=== PATIENT | female | born 1960 | race American Indian/Alaskan Native ===

== ENCOUNTER 2017-01-12 19:47 | Emergency (ER) | payer OTHER ==
[2017-01-12 19:53] VITALS: BP 118/74
--- NOTE | 2017-01-12 20:35 | EDM.PDOC ---
ED HPI EYE COMPLAINT - General Chief Complaint: Eye Problems Stated Complaint: INFECTED EYS [id number] Time Seen by Provider: 01/12/17 20:30 Source: Reports: Patient History Limitations: Reports: No limitations - History of Present Illness INITIAL COMMENTS - FREE TEXT/NARRATIVE: This 56 yo female patient reports to the ED with bilateral eye erythema and itching. The patient reports her symptoms started 2 days ago and have gotten worse. The patient reports she has not done anything for temporary symptom relief. Symptom Onset Date: 01/11/17 Timing/Duration: Reports: Constant, Getting worse Location: both Quality: Reports: Ache, Burning Severity: moderate Improves with: Reports: None Worsens with: Reports: None Context: Reports: other (unknown) Associated Symptoms (Eye): Reports: pain, burning, itching, eyelid matting, orbital redness - Related Data Allergies/ADRs: Allergies pregabalin Allergy (Verified 01/12/17 19:55) Dizziness Home Meds: Ambulatory Orders Medication Instructions Recorded Confirmed Omeprazole 20 mg PO DAILY 01/18/15 07/18/16 Ibuprofen 400 mg PO TID PRN 07/17/16 07/17/16 Gabapentin [Neurontin] 600 mg PO TID 07/18/16 07/18/16 Aspirin 81 mg PO DAILY 01/12/17 01/12/17 Past Medical History HEENT History: Reports: Impaired vision Cardiovascular History: Reports: Hypertension 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: Reports: GERD 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: Neurological History: Reports: Neuropathy, peripheral Psychiatric History: Reports: Depression Endocrine/Metabolic History: Reports: Diabetes, type II - Infectious Disease History Infectious Disease History: Reports: Chicken pox - Past Surgical History Other Cardiovascular Surgeries/Procedures: "nerve damage around heart" Other GI Surgeries/Procedures: on omeprozole for heartburn Social & Family History - Tobacco Use Smoking Status *Q: Light Tobacco Smoker Years of Tobacco use: 25 Packs/Tins Daily: 0.2 - Caffeine Use Caffeine Use: Reports: Coffee - Alcohol Use Days Per Week of Alcohol Use: 0 - Recreational Drug Use Recreational Drug Use: No Drug Use in Last 12 Months: Yes Recreational Drug Type: Reports: Marijuana/Hashish Recreational Drug Use Frequency: Socially - Living Situation & Occupation Living situation: Reports: Occupation: employed ED ROS GENERAL - Review of Systems Review Of Systems: ROS reveals no pertinent complaints other than HPI. ED EXAM GENERAL W FULL EYE - Physical Exam Exam: See Below Exam Limited By: No limitations General Appearance: alert, WD/WN, mild distress Eye Exam: bilateral eye: conjunctival injection, PERRL Eyelids: bilateral: erythema (mild) Conjunctiva & Sclera: bilateral: injected Cornea Exam: bilateral: normal appearance Extraocular Movements: bilateral: intact Pupils: normal accommodation Pupillary Size: bilateral: 4 mm Pupillary Reaction: bilateral: brisk Ears: normal external exam, normal canal, hearing grossly normal, normal TMs Nose: normal inspection, normal mucosa, no blood Throat/Mouth: Normal inspection, Normal lips, Normal teeth, Normal gums, Normal oropharynx, Normal voice, No airway compromise Head: atraumatic, normocephalic Neck: normal inspection, supple, non-tender, full range of motion Respiratory/Chest: no respiratory distress, lungs clear, normal breath sounds, no accessory muscle use, chest non-tender Cardiovascular: normal peripheral pulses, regular rate, rhythm, no edema, no gallop, no JVD, no murmur, no rub GI/Abdominal: normal bowel sounds, soft, non tender, no organomegaly, no distention, no abnormal bruit, no mass, other (obese) (Female) Exam: Deferred Rectal (Female) Exam: Deferred Extremities: normal inspection, normal range of motion, non-tender, normal capillary refill, no pedal edema Neurological: alert, oriented, CN II-XII intact, normal cognition, normal gait, normal reflexes, no motor/sensory deficits Psychiatric: normal affect, normal mood Skin Exam: Warm, Dry, Intact, Normal color, No rash Lymphatic: no adenopathy Course - Vital Signs Last Recorded V/S: Last Vital Signs Temp 37.0 C 01/12/17 19:51 Pulse 86 01/12/17 19:51 Resp 16 01/12/17 19:51 BP 118/74 01/12/17 19:51 Pulse Ox 94 L 01/12/17 19:51 Departure - Departure Time of Disposition: 20:33 Disposition: Home, Self-Care 01 Condition: fair Clinical Impression: Conjunctivitis Qualifiers: Conjunctivitis type: acute Acute conjunctivitis type: bacterial Laterality: bilateral Qualified Code(s): H10.33 - Unspecified acute conjunctivitis, bilateral Instructions: Bacterial Conjunctivitis, [id number] Forms: ED Department Discharge Care Plan Goals: The patient was advised of the examination results during the visit. The patient was discharged with Sulfacetamide Ophthalmic (10% solution) to place 2 dropps in each eye 4 times per day for 7 days. If the patient has any additional symptoms, the patient should follow-up with her primary care facility or return to the emergency department.
[2017-01-12] MEDS ORDERED: Sulfacetamide 10% Ophth Soln 5 ML Bottle EYEBOTH ONE (20:47)
[2017-01-12] MEDS ORDERED: Sulfacetamide 10% Ophth Soln 5 ML Bottle ONE (20:47)
== END 2017-01-12 20:49 | disposition home or self-care (01) ==
LOC: DL.ED 19:47
DX: H10.33 Unspecified acute conjunctivitis, bilateral (principal); I10 Essential (primary) hypertension; K21.9 Gastro-esophageal reflux disease without esophagitis; F32.9 Major depressive disorder, single episode, unspecified; E11.9 Type 2 diabetes mellitus without complications; F17.210 Nicotine dependence, cigarettes, uncomplicated; Z79.899 Other long term (current) drug therapy; Z79.82 Long term (current) use of aspirin; Z88.8 Allergy status to other drugs, medicaments and biological substances
CPT/HCPCS: 99282

== ENCOUNTER 2017-01-13 20:22 | Emergency (ER) | payer OTHER ==
[2017-01-13 20:27] VITALS: BP 130/68
[2017-01-13] MEDS ORDERED: Bacitracin/Polymyxin B Ophth Oint 3.5 GM Tube EYEBOTH SCH (21:00)
--- NOTE | 2017-01-13 21:00 | EDM.PDOC ---
ED HPI EYE COMPLAINT - General Chief Complaint: Eye Problems Stated Complaint: eys infection [id number] Time Seen by Provider: 01/13/17 20:53 Source: Reports: Patient History Limitations: Reports: No limitations - History of Present Illness INITIAL COMMENTS - FREE TEXT/NARRATIVE: this 56 yo female patient returns to the ED with increased swelling in her eyes. The patient was seen in the ED yesterday for conjunctivitis and started on sulfacetamide eye drops with worsening of her symptoms. Symptom Onset Date: 01/11/17 Timing/Duration: Reports: Constant, Getting worse Location: both Quality: Reports: Ache, Burning, Dull Severity: moderate Improves with: Reports: Other (cool compress) Worsens with: Reports: None Associated Symptoms (Eye): Reports: pain, burning, itching, eyelid redness, eyelid swelling - Related Data Allergies/ADRs: Allergies pregabalin Allergy (Verified 01/13/17 20:27) Dizziness Home Meds: Ambulatory Orders Medication Instructions Recorded Confirmed Omeprazole 20 mg PO DAILY 01/18/15 01/13/17 Ibuprofen 400 mg PO TID PRN 07/17/16 01/13/17 Gabapentin [Neurontin] 600 mg PO TID 07/18/16 01/13/17 Aspirin 81 mg PO DAILY 01/12/17 01/13/17 Sulfacetamide [Bleph-10] 2 drop OP Q6H 01/13/17 01/13/17 Past Medical History HEENT History: Reports: Impaired vision Cardiovascular History: Reports: Hypertension 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: Reports: 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: Neurological History: Reports: Neuropathy, peripheral Psychiatric History: Reports: Depression Endocrine/Metabolic History: Reports: Diabetes, type II - Infectious Disease History Infectious Disease History: Reports: Chicken pox - Past Surgical History Other Cardiovascular Surgeries/Procedures: "nerve damage around heart" Other GI Surgeries/Procedures: on omeprozole for heartburn Social & Family History - Tobacco Use Smoking Status *Q: Current Every Day Smoker Years of Tobacco use: 30 Packs/Tins Daily: 0.2 Second Hand Smoke Exposure: Yes - Caffeine Use Caffeine Use: Reports: Coffee - Alcohol Use Days Per Week of Alcohol Use: 0 - Recreational Drug Use Recreational Drug Use: No Drug Use in Last 12 Months: Yes Recreational Drug Type: Reports: Marijuana/Hashish Recreational Drug Use Frequency: Socially - Living Situation & Occupation Living situation: Reports: Occupation: employed ED ROS GENERAL - Review of Systems Review Of Systems: ROS reveals no pertinent complaints other than HPI. ED EXAM GENERAL W FULL EYE - Physical Exam Exam: See Below Exam Limited By: No limitations General Appearance: alert, WD/WN, no apparent distress Eye Exam: bilateral eye: EOMI, normal inspection, PERRL Eyelids: bilateral: edema Conjunctiva & Sclera: bilateral: conjunctival edema, discharge Cornea Exam: bilateral: normal appearance Extraocular Movements: bilateral: intact Pupils: normal accommodation Pupillary Size: bilateral: 5 mm Pupillary Reaction: bilateral: brisk Ears: normal external exam, normal canal, hearing grossly normal, normal TMs Nose: normal inspection, normal mucosa, no blood Throat/Mouth: Normal inspection, Normal lips, Normal teeth, Normal gums, Normal oropharynx, Normal voice, No airway compromise Head: atraumatic, normocephalic Neck: normal inspection, supple, non-tender, full range of motion Respiratory/Chest: no respiratory distress, lungs clear, normal breath sounds, no accessory muscle use, chest non-tender Cardiovascular: normal peripheral pulses, regular rate, rhythm, no edema, no gallop, no JVD, no murmur, no rub GI/Abdominal: normal bowel sounds, soft, non tender, no organomegaly, no distention, no abnormal bruit, no mass (Female) Exam: Deferred Rectal (Female) Exam: Deferred Back Exam: normal inspection, full range of motion, NT Extremities: normal inspection, normal range of motion, non-tender, normal capillary refill, no pedal edema Neurological: alert, oriented, CN II-XII intact, normal cognition, normal gait, normal reflexes, no motor/sensory deficits Psychiatric: normal affect, normal mood Skin Exam: Warm, Dry, Intact, Normal color, No rash Lymphatic: no adenopathy Course - Vital Signs Last Recorded V/S: Last Vital Signs Temp 36.2 C 01/13/17 20:24 Pulse 85 01/13/17 20:24 Resp 18 01/13/17 20:24 BP 130/68 01/13/17 20:24 Pulse Ox 99 01/13/17 20:24 - Orders/Labs/Meds Orders: Active Orders 24 hr Category Date Time Status Bacitracin/Polymyxin B [Polysporin Ophth Oint] Med 01/13/17 21:00 Ordered 1 gm EYEBOTH TID Departure - Departure Time of Disposition: 20:56 Disposition: Home, Self-Care 01 Condition: fair Clinical Impression: Conjunctivitis Qualifiers: Conjunctivitis type: acute Acute conjunctivitis type: bacterial Laterality: bilateral Qualified Code(s): H10.33 - Unspecified acute conjunctivitis, bilateral Forms: ED Department Discharge Care Plan Goals: The patient was advised of the examination results during the visit. The patient was advised to stop the Sulfacetamide eye drops. The patient was given Polytrim ointment to apply a 1/4 inch ribbon to the lower eyelid 3 times per day for 7 days. The patient was also advised to start taking a second generation antihistamine (Zyrtec, Claritin) as directed. If the patient has any additional symptoms or concerns, the patient should follow-up with her primary care facility or return to the emergency department. - My Orders Last 24 Hours: My Active Orders 01/13/17 21:00 Bacitracin/Polymyxin B [Polysporin Ophth Oint] 1 gm EYEBOTH TID - Assessment/Plan Last 24 Hours: My Active Orders 01/13/17 21:00 Bacitracin/Polymyxin B [Polysporin Ophth Oint] 1 gm EYEBOTH TID
== END 2017-01-13 21:12 | disposition home or self-care (01) ==
LOC: DL.ED 20:22
DX: H10.33 Unspecified acute conjunctivitis, bilateral (principal); I10 Essential (primary) hypertension; K21.9 Gastro-esophageal reflux disease without esophagitis; E11.9 Type 2 diabetes mellitus without complications; F32.9 Major depressive disorder, single episode, unspecified; F17.210 Nicotine dependence, cigarettes, uncomplicated; Z88.8 Allergy status to other drugs, medicaments and biological substances
CPT/HCPCS: 99283; A9270

== ENCOUNTER 2017-07-21 17:20 | Emergency (ER) | payer OTHER ==
[2017-07-21] MEDS ORDERED: Clindamycin HCl 150 MG Cap PO ONE (17:21)
[2017-07-21 18:43] VITALS: BP 132/77
--- NOTE | 2017-07-21 19:07 | EDM.PDOC ---
ED HPI GENERAL MEDICAL PROBLEM - General Chief Complaint: ENT Problem Stated Complaint: CHEEK AREA SWOLLEN/MOUTH [id number] Time Seen by Provider: 07/21/17 19:07 Source of Information: Reports: Patient History Limitations: Reports: No Limitations - History of Present Illness INITIAL COMMENTS - FREE TEXT/NARRATIVE: red swollen area to left lower jaw starting last night, area tender, increasing in size through out today. No reported fever. No prior hx of skin infections. 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: Neurological History: Reports: Neuropathy, Peripheral Psychiatric History: Reports: Depression Endocrine/Metabolic History: Reports: Diabetes, Type II - Infectious Disease History Infectious Disease History: Reports: Chicken Pox - Past Surgical History Other Cardiovascular Surgeries/Procedures: "nerve damage around heart" GI Surgical History: Reports: Cholecystectomy Other GI Surgeries/Procedures: on omeprozole for heartburn Social & Family History - Tobacco Use Smoking Status *Q: Current Some Day Smoker Years of Tobacco use: 10 Packs/Tins Daily: 0 Second Hand Smoke Exposure: Yes - Caffeine Use Caffeine Use: Reports: Coffee, Energy Drinks, Soda - Alcohol Use Days Per Week of Alcohol Use: 0 - Recreational Drug Use Recreational Drug Use: Yes Drug Use in Last 12 Months: Yes Recreational Drug Type: Reports: Marijuana/Hashish Recreational Drug Use Frequency: Socially - Living Situation & Occupation Living situation: Reports: Occupation: Employed ED ROS ENT - Review of Systems Review Of Systems: See Below Constitutional: Reports: No Symptoms HEENT: Reports: Other (lower facial swelling) Respiratory: Reports: No Symptoms Cardiovascular: Reports: No Symptoms GI/Abdominal: Reports: No Symptoms Musculoskeletal: Reports: No Symptoms Skin: Reports: Erythema, Lumps (left lower cheek) ED EXAM, ENT - Physical Exam Exam: See Below Exam Limited By: No Limitations General Appearance: Alert, Mild Distress Eye Exam: Bilateral Eye: EOMI, PERRL Ears: Normal External Exam Nose: Normal Inspection Mouth/Throat: Normal Inspection, Normal Gums Head: Facial Swelling (left lower anterior cheek) Neck: Lymphadenopathy (L) Respiratory/Chest: No Respiratory Distress, Lungs Clear Cardiovascular: Normal Peripheral Pulses, Regular Rate, Rhythm Extremities: Normal Inspection Neurological: Alert, Oriented, Normal Cognition Psychiatric: Normal Affect Skin: Warm, Dry, Erythema (left lower cheek, firm pinpoint punctate center, no drainage) Course - Vital Signs Last Recorded V/S: Last Vital Signs Temp 99.4 F 07/21/17 18:43 Pulse 90 07/21/17 18:43 Resp 18 07/21/17 18:43 BP 132/77 07/21/17 18:43 Pulse Ox 97 07/21/17 18:43 - Orders/Labs/Meds Meds: Medications Discontinued Medications Generic Name Dose Route Start Last Admin Trade Name Urvashi PRN Reason Stop Dose Admin Clindamycin HCl Confirm 07/21/17 19:16 Cleocin Administered 07/21/17 19:17 Dose 600 mg .ROUTE .STK-MED ONE Departure - Departure Time of Disposition: 19:19 Disposition: Home, Self-Care 01 Condition: Good Clinical Impression: Abscess of face - Discharge Information Instructions: Abscess Forms: ED Department Discharge Additional Instructions: Warm pack to left lower face clindamycin 150mg two capsules 4 times daily for one week follow up in clinic on Saturday as previously scheduled, sooner if symptoms worsen acetaminophen 650mg every 4 hours, may alternate with 600mg of ibuprofen as needed for pain or discomfort
[2017-07-21] MEDS ORDERED: Clindamycin HCl 150 MG Cap ONE (19:16)
== END 2017-07-21 19:27 | disposition home or self-care (01) ==
LOC: DL.ED 17:20
DX: L02.01 Cutaneous abscess of face (principal); F17.210 Nicotine dependence, cigarettes, uncomplicated; Z88.8 Allergy status to other drugs, medicaments and biological substances; Z79.899 Other long term (current) drug therapy
CPT/HCPCS: 99282; A9270-GY

== ENCOUNTER 2021-09-06 21:01 | Emergency (ER) | payer MEDICAID, OTHER ==
--- NOTE | 2021-09-06 21:43 | EDM.PDOC ---
ED HPI GENERAL MEDICAL PROBLEM - General Chief Complaint: Chest Pain Stated Complaint: HEART PAIN Time Seen by Provider: 09/06/21 21:39 Source of Information: Reports: Patient History Limitations: Reports: No Limitations - History of Present Illness INITIAL COMMENTS - FREE TEXT/NARRATIVE: 61 y/o F c/o cp center chest comes in waves has been going on for 2 hours currently pain free. Has had similar episodes in the past and been worked up in the ER. The cp was sharp center chest non radiating. Was scheduled for a GI consult at [facility] but it was cancelled due to weather. Has had gall bladder removed. She denies sob, NVD, abd pain, pelvic pain, ext pain. Bilateral Upper Chest Pain Score (Numeric/FACES): 3 - Related Data Allergies Allergy/AdvReac Type Severity Reaction Status Date / Time pregabalin Allergy Dizziness Verified 09/06/21 21:25 Home Meds: Home Meds Omeprazole 20 mg PO DAILY 01/18/15 [History] Ibuprofen 400 mg PO TID PRN 07/17/16 [History] Gabapentin [Neurontin] 600 mg PO TID 07/18/16 [History] Aspirin 81 mg PO DAILY 01/12/17 [History] Sulfacetamide [Bleph-10] 2 drop OP Q6H 01/13/17 [History] Past Medical History HEENT History: Reports: Impaired Vision Cardiovascular History: Reports: Hypertension Respiratory History: Reports: None 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: Reports: GERD 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: Neurological History: Reports: Neuropathy, Peripheral Psychiatric History: Reports: Depression Endocrine/Metabolic History: Reports: Diabetes, Type II - Infectious Disease History Infectious Disease History: Reports: Chicken Pox - Past Surgical History Other Cardiovascular Surgeries/Procedures: "nerve damage around heart" GI Surgical History: Reports: Cholecystectomy Other GI Surgeries/Procedures: on omeprozole for heartburn Social & Family History - Tobacco Use Tobacco Use Status *Q: Current Every Day Tobacco User Years of Tobacco use: 25 Packs/Tins Daily: 0.5 - Caffeine Use Caffeine Use: Reports: Coffee - Recreational Drug Use Recreational Drug Type: Reports: Marijuana/Hashish - Living Situation & Occupation Living situation: Reports: Occupation: Employed ED ROS GENERAL - Review of Systems Review Of Systems: Comprehensive ROS is negative, except as noted in HPI. ED EXAM, GENERAL - Physical Exam Exam: See Below Exam Limited By: No Limitations General Appearance: Alert, WD/WN, No Apparent Distress Ears: Normal External Exam, Normal Canal, Hearing Grossly Normal, Normal TMs Nose: Normal Inspection, Normal Mucosa, No Blood Throat/Mouth: Normal Inspection, Normal Lips, Normal Teeth, Normal Gums, Normal Oropharynx, Normal Voice, No Airway Compromise Head: Atraumatic, Normocephalic Neck: Normal Inspection, Supple, Non-Tender, Full Range of Motion Respiratory/Chest: No Respiratory Distress, Lungs Clear, Normal Breath Sounds, No Accessory Muscle Use, Chest Non-Tender Cardiovascular: Normal Peripheral Pulses, Regular Rate, Rhythm, No Edema, No Gallop, No JVD, No Murmur, No Rub GI/Abdominal: Normal Bowel Sounds, Soft, Non-Tender, No Organomegaly, No Distention, No Abnormal Bruit, No Mass (Female) Exam: Deferred Rectal (Female) Exam: Deferred Back Exam: Normal Inspection, Full Range of Motion, NT Extremities: Normal Inspection, Normal Range of Motion, Non-Tender, Normal Capillary Refill, No Pedal Edema Neurological: Alert, Oriented, CN II-XII Intact, Normal Cognition, Normal Gait, Normal Reflexes, No Motor/Sensory Deficits Psychiatric: Normal Affect, Normal Mood Skin Exam: Warm, Dry, Intact, Normal Color, No Rash Course - Vital Signs Last Recorded V/S: Last Vital Signs Temp 98.2 F 09/06/21 21:23 Pulse 82 09/06/21 21:23 Resp 18 09/06/21 21:23 BP 118/65 09/06/21 21:23 Pulse Ox 92 L 09/06/21 21:23 - Orders/Labs/Meds Orders: Active Orders 24 hr Category Date Time Status Peripheral IV Care [RC] . DIRECTED Care 09/06/21 21:20 Active Sodium Chloride 0.9% [Saline Flush] Med 09/06/21 21:20 Active 10 ml FLUSH ASDIRECTED PRN Peripheral IV Insertion Adult [OM.PC] Routine Oth 09/06/21 21:20 Ordered Medication Orders Sodium Chloride (Sodium Chloride 0.9% 10 Ml Syringe) 10 ml FLUSH ASDIRECTED PRN PRN Reason: Keep Vein Open Last Admin: 09/06/21 21:49 Dose: 10 ml Documented by: [place] Labs: Laboratory Tests 12/29/21 12/29/21 12/29/21 Range/Units 21:25 21:35 21:35 WBC 4.9 L (5.0-10.0) 10^3/uL RBC 4.41 (4.2-5.4) 10^6/uL Hgb 12.2 (12.0-16.0) g/dL Hct 38.1 (37.0-47.0) % MCV 86.4 (80-100) fL MCH 27.7 (27.0-34.0) pg MCHC 32.0 L (33.0-35.0) g/dL Plt Count 290 (150-450) 10^3/uL Neut % (Auto) 59.3 (42.2-75.2) % Lymph % (Auto) 27.8 (20.5-50.1) % Benzie % (Auto) 11.5 H (2-8) % Eos % (Auto) 1.0 (1.0-3.0) % Baso % (Auto) 0.4 (0.0-1.0) % Sodium 138 (136-145) mmol/L Potassium 3.5 (3.5-5.1) mmol/L Chloride 101 (98-107) mmol/L Carbon Dioxide 29 (21-32) mmol/L Anion Gap 11.5 (7-13) mEq/L BUN 15 (7-18) mg/dL Creatinine 0.95 (0.55-1.02) mg/dL Est Cr Clr Drug Dosing 44.10 mL/min Estimated GFR (MDRD) 60 BUN/Creatinine Ratio 15.8 (No establ ref range) Glucose 115 H (70-99) mg/dL Calcium 8.7 (8.5-10.1) mg/dL Magnesium 1.5 L (1.8-2.4) mg/dL Total Bilirubin 0.3 (0.2-1.0) mg/dL AST 24 (15-37) U/L ALT 31 (14-59) U/L Alkaline Phosphatase 100 (46-116) U/L Troponin I High Sens 12 (<=51) pg/mL C-Reactive Protein 1.7 H (0.0-0.9) mg/dL Total Protein 7.0 (6.4-8.2) g/dL Albumin 3.2 L (3.4-5.0) g/dL Globulin 3.8 Albumin/Globulin Ratio 0.84 Amylase 48 (25-115) U/L Lipase 118 (73-393) U/L Influenza Type A RNA Positive H (NEGATIVE) Influenza Type B RNA Negative (NEGATIVE) SARS-CoV-2 RNA (ISBAEL) Negative (NEGATIVE) Meds: Medications Generic Name Dose Route Start Last Admin Trade Name Freq PRN Reason Stop Dose Admin Sodium Chloride 10 ml 09/06/21 21:20 09/06/21 21:49 Sodium Chloride 0.9% 10 Ml Syringe FLUSH 10 ml ASDIRECTED PRN Administration Keep Vein Open - Re-Assessments/Exams Free Text/Narrative Re-Assessment/Exam: 09/06/21 22:35 I discussed the lab and exam findings with the pt and explained the findings. The pt had no questions and has felt fine while here. Departure - Departure Time of Disposition: 22:36 Disposition: Home, Self-Care 01 Condition: Good Clinical Impression: Influenza A Instructions: Influenza, Adult, [id number] Forms: ED Department Discharge Additional Instructions: Use tylenol and ibuprofen for pain as needed. If any new symptoms or concerns develop contact your primary care facility or return to the ER> Sepsis Event Note (ED) - Evaluation Sepsis Screening Result: No Definite Risk - Focused Exam Vital Signs: Vital Signs Temp Pulse Resp BP Pulse Ox 09/06/21 21:23 98.2 F 82 18 118/65 92 L - My Orders Last 24 Hours: My Active Orders 09/06/21 21:20 Peripheral IV Care [RC] . DIRECTED Sodium Chloride 0.9% [Saline Flush] 10 ml FLUSH ASDIRECTED PRN Peripheral IV Insertion Adult [OM.PC] Routine - Assessment/Plan Last 24 Hours: My Active Orders 09/06/21 21:20 Peripheral IV Care [RC] . DIRECTED Sodium Chloride 0.9% [Saline Flush] 10 ml FLUSH ASDIRECTED PRN Peripheral IV Insertion Adult [OM.PC] Routine
[2021-09-06] MEDS: Sodium Chloride 0.9% 10 ML Syringe FLUSH PRN (21:49)
[2021-09-06 22:04] LABS: ANION GAP 11.5 mEq/L (7-13)
[2021-09-06 22:07] LABS: CORONAVIRUS COVID-19 NAA NEGATIVE (NEGATIVE)
[2021-09-07 00:09] VITALS: BP 102/55; PULSE 76
== END 2021-09-06 22:56 | disposition home or self-care (01) ==
LOC: DL.ED 21:01
DX: J10.1 Influenza due to other identified influenza virus with other respiratory manifestations (principal); I10 Essential (primary) hypertension; K21.9 Gastro-esophageal reflux disease without esophagitis; E11.42 Type 2 diabetes mellitus with diabetic polyneuropathy; Z72.0 Tobacco use; Z88.8 Allergy status to other drugs, medicaments and biological substances; Z79.82 Long term (current) use of aspirin; Z79.899 Other long term (current) drug therapy; Z20.822 Contact with and (suspected) exposure to COVID-19
CPT/HCPCS: 0240U; 36415; 80053; 82150; 83690; 83735; 84484; 85025; 86140; 93005; 99285

== ENCOUNTER 2022-01-27 14:18 | Emergency (ER) | payer MEDICAID ==
[2022-01-27 14:35] VITALS: BP 109/56; PULSE 66
[2022-01-27 15:05] LABS: ANION GAP 8.8 mEq/L (7-13); CHLORIDE,CL 106 mmol/L (98-107); SODIUM,NA 144 mmol/L (136-145)
[2022-01-27 15:54] LABS: AMPHETAMINES,URINE NEGATIVE (NEGATIVE); BARBITURATES,URINE NEGATIVE (NEGATIVE); BENZODIAZEPINE,URINE NEGATIVE (NEGATIVE); MDMA (ECSTASY), URINE NEGATIVE (NEGATIVE); METHADONE,URINE NEGATIVE (NEGATIVE); METHAMPHETAMINES,URINE NEGATIVE (NEGATIVE); OPIATES,URINE NEGATIVE (NEGATIVE); OXYCODONE,URINE NEGATIVE (NEGATIVE); PHENCYCLIDINE,URINE NEGATIVE (NEGATIVE); TCA,URINE NEGATIVE (NEGATIVE)
[2022-01-27] MEDS ORDERED: Sodium Chloride 0.9% 1,000 ML IV ONE (16:06)
== END 2022-01-27 18:00 | disposition home or self-care (01) ==
LOC: DL.ED 14:18
DX: R10.12 Left upper quadrant pain (principal); R31.1 Benign essential microscopic hematuria; E27.9 Disorder of adrenal gland, unspecified; I10 Essential (primary) hypertension; K21.9 Gastro-esophageal reflux disease without esophagitis; E11.42 Type 2 diabetes mellitus with diabetic polyneuropathy; Z88.8 Allergy status to other drugs, medicaments and biological substances; Z79.82 Long term (current) use of aspirin; Z79.899 Other long term (current) drug therapy
CPT/HCPCS: 36415; 74176; 80053; 80305; 80307; 81001; 83605; 83735; 85025; 86140; 99284; J7030

== ENCOUNTER 2023-04-21 17:05 | Emergency (ER) | payer MEDICAID, OTHER ==
[2023-04-21] MEDS ORDERED: Ondansetron 4 MG/2 ML SDV IVPUSH ONE (17:18)
[2023-04-21] MEDS ORDERED: Acetaminophen 500 MG Tab PO ONE (17:24)
[2023-04-21 17:25] LABS: BASOPHILS PERCENT AUTO 0.1 % (0.0-1.0); LYMPHOCYTES PERCENT AUTO 12.6 % (20.5-50.1); MEAN CORPUSCULAR HEMOGLOBIN 23.9 pg (27.0-34.0); MEAN CORPUSCULAR HGB CONC 31.8 g/dL (33.0-35.0); MEAN CORPUSCULAR VOLUME 75.2 fL (80-100); MONOCYTES PERCENT AUTO 4.2 % (2-8); NEUTROPHILS PERCENT AUTO 82.1 % (42.2-75.2); PLATELET COUNT,PLT 367 10^3/uL (150-450); RED BLOOD CELL COUNT 5.85 10^6/uL (4.2-5.4); WHITE BLOOD CELL COUNT,WBC 10.2 10^3/uL (5.0-10.0)
[2023-04-21] MEDS ORDERED: Lactated Ringers 1,000 ML IV SCH (17:30)
[2023-04-21 17:32] VITALS: BP 130/62; PULSE 66
[2023-04-21 17:45] LABS: A/G RATIO 0.7; ALBUMIN 3.4 g/dL (3.4-5.0); ANION GAP 11.8 mEq/L (7-13); BILIRUBIN TOTAL 0.4 mg/dL (0.2-1.0); BUN/CREATININE RATIO 22.2 (No establ ref range); CALCIUM 9.3 mg/dL (8.5-10.1); CREATININE 0.72 mg/dL (0.55-1.02); EST CRCL DRUG DOSING (CG) 68.16 mL/min; POTASSIUM,K 3.8 mmol/L (3.5-5.1); PROTEIN TOTAL,TP 8.6 g/dL (6.4-8.2)
[2023-04-21 19:13] LABS: APPEARANCE,URINE CLEAR (CLEAR); BILIRUBIN,URINE NEGATIVE (NEGATIVE); COLOR,URINE YELLOW (YELLOW); GLUCOSE,URINE 500 (NEGATIVE); KETONES,URINE NEGATIVE (NEGATIVE); LEUKOCYTE ESTERASE,URINE NEGATIVE (NEGATIVE); NITRITE,URINE NEGATIVE (NEGATIVE); OCCULT BLOOD,URINE MODERATE (NEGATIVE); PH,URINE 7.5 (5.0-9.0); PROTEIN,URINE NEGATIVE (NEGATIVE); UROBILINOGEN,URINE 0.2 mg/dL (0.2-1.0)
[2023-04-21 19:20] LABS: BACTERIA,URINE FEW /HPF (0-FEW/HPF); EPITHELIAL CELLS,URINE OCCASIONAL /HPF (NOT SEEN); WBC,URINE NOT SEEN /HPF (0-5/HPF)
[2023-04-21] MEDS ORDERED: Take Home: Ondansetron 4 MG Tab.DIS, 5 Tab Pack PO ONE (19:34)
== END 2023-04-21 20:40 | disposition home or self-care (01) ==
LOC: DL.ED 17:05
DX: R11.2 Nausea with vomiting, unspecified (principal); R19.7 Diarrhea, unspecified; K21.9 Gastro-esophageal reflux disease without esophagitis; I10 Essential (primary) hypertension; E11.9 Type 2 diabetes mellitus without complications; Z88.8 Allergy status to other drugs, medicaments and biological substances
CPT/HCPCS: 36415; 80053; 81001; 82947; 83605; 83690; 85025; 96361; 96374; 99283; 99284-25; A9270-GY; J2405; J7120; Q0162

== ENCOUNTER 2023-12-18 08:35 | Inpatient (IN) | payer MEDICARE, OTHER ==
[2023-12-18] MEDS: Sodium Chloride 0.9% 1,000 ML IV ONE ×2 (09:03→11:19)
[2023-12-18] MEDS: Ondansetron 4 MG/2 ML SDV IV ONE ×2 (09:04→11:19)
[2023-12-18 09:05] LABS: BASOPHILS PERCENT AUTO 0.2 % (0.0-1.0); EOSINOPHILS PERCENT AUTO 0.2 % (1.0-3.0); HEMATOCRIT 43.6 % (37.0-47.0); HEMOGLOBIN 14.4 g/dL (12.0-16.0); LYMPHOCYTES PERCENT AUTO 20.3 % (20.5-50.1); MEAN CORPUSCULAR HEMOGLOBIN 25.6 pg (27.0-34.0); MEAN CORPUSCULAR VOLUME 77.6 fL (80-100); MONOCYTES PERCENT AUTO 5.1 % (2-8); NEUTROPHILS PERCENT AUTO 74.2 % (42.2-75.2); PLATELET COUNT,PLT 330 10^3/uL (150-450); RED BLOOD CELL COUNT 5.62 10^6/uL (4.2-5.4); WHITE BLOOD CELL COUNT,WBC 4.7 10^3/uL (5.0-10.0)
[2023-12-18 09:10] LABS: BILIRUBIN,URINE SMALL (NEGATIVE); COLOR,URINE YELLOW (YELLOW); GLUCOSE,URINE 500 (NEGATIVE); KETONES,URINE 80 (NEGATIVE); LEUKOCYTE ESTERASE,URINE NEGATIVE (NEGATIVE); NITRITE,URINE NEGATIVE (NEGATIVE); OCCULT BLOOD,URINE MODERATE (NEGATIVE); PROTEIN,URINE TRACE (NEGATIVE)
[2023-12-18] MEDS: Sodium Chloride 0.9% 10 ML Syringe FLUSH PRN (09:16)
[2023-12-18 09:18] LABS: ALANINE AMINOTRANSFERASE,ALT 153 U/L (14-59); ALBUMIN 3.2 g/dL (3.4-5.0); ALKALINE PHOSPHATASE 158 U/L (46-116); AMYLASE 31 U/L (25-115); ANION GAP 17.7 mEq/L (7-13); ASPARTATE AMNIOTRANSFERASE,AST 77 U/L (15-37); BILIRUBIN TOTAL 0.4 mg/dL (0.2-1.0); BLOOD UREA NITROGEN,BUN 19 mg/dL (7-18); CALCIUM 9.3 mg/dL (8.5-10.1); CARBON DIOXIDE,CO2 24 mmol/L (21-32); CHLORIDE,CL 99 mmol/L (98-107); CREATININE 0.73 mg/dL (0.55-1.02); GLUCOSE RANDOM 147 mg/dL (70-99); LIPASE 13 U/L (16-77); MAGNESIUM 1.7 mg/dL (1.8-2.4); POTASSIUM,K 3.7 mmol/L (3.5-5.1); PROTEIN TOTAL,TP 7.6 g/dL (6.4-8.2); SODIUM,NA 137 mmol/L (136-145)
[2023-12-18 09:19] LABS: A/G RATIO 0.73; ESTIMATED GFR 92 mL/min (>=60)
[2023-12-18 09:21] LABS: LACTIC ACID 2.4 mmol/L (0.4-2.0)
[2023-12-18 09:24] LABS: APPEARANCE,URINE SLIGHTLY CLOUDY (CLEAR)
[2023-12-18 09:25] LABS: BACTERIA,URINE RARE /HPF (0-FEW/HPF); EPITHELIAL CELLS,URINE FEW /HPF (NOT SEEN); MUCUS,URINE RARE /LPF (NOT SEEN); RBC,URINE 50-75 /HPF (0-5); WBC,URINE 0-5 /HPF (0-5/HPF)
[2023-12-18] MEDS: HYDROmorphone 1 MG/ML Syringe IVPUSH ONE ×2 (09:25→11:19)
[2023-12-18 09:28] LABS: AMPHETAMINES,URINE NEGATIVE (NEGATIVE); BARBITURATES,URINE NEGATIVE (NEGATIVE); BENZODIAZEPINE,URINE NEGATIVE (NEGATIVE); MDMA (ECSTASY), URINE NEGATIVE (NEGATIVE); METHADONE,URINE NEGATIVE (NEGATIVE); METHAMPHETAMINES,URINE NEGATIVE (NEGATIVE); OPIATES,URINE NEGATIVE (NEGATIVE); OXYCODONE,URINE NEGATIVE (NEGATIVE); PHENCYCLIDINE,URINE NEGATIVE (NEGATIVE); TCA,URINE NEGATIVE (NEGATIVE)
[2023-12-18] MEDS: Pantoprazole 40 MG Vial IVPUSH ONE (09:28)
[2023-12-18 09:32] LABS: HEMOGLOBIN A1C 6.6 % (<5.7)
[2023-12-18 09:45] LABS: CORONAVIRUS COVID-19 NAA NEGATIVE (NEGATIVE); INFLUENZA A NAA NEGATIVE (NEGATIVE); INFLUENZA B NAA NEGATIVE (NEGATIVE); RESPIRATORY SYNCYTIAL VIR NAA NEGATIVE (NEGATIVE)
[2023-12-18] MEDS: LORazepam 2 MG/ML SDV IVPUSH ONE (11:33)
[2023-12-18] MEDS ORDERED: Docusate Sodium 100 MG Cap PO PRN (13:01)
[2023-12-18] MEDS ORDERED: Magnesium Hydroxide 400 MG/5 ML Susp 30 ML Cup PO PRN (13:01)
[2023-12-18] MEDS ORDERED: Acetaminophen 325 MG Tab PO PRN (13:01)
[2023-12-18] MEDS: Sodium Chloride 0.9% 1,000 ML IV SCH (17:22)
[2023-12-18] MEDS: Patient's Own Medication 1 Each PO SCH ×2 (20:30)
[2023-12-18] MEDS: HYDROmorphone 0.5 MG/0.5 ML Syringe IVPUSH PRN (20:30)
[2023-12-18] MEDS: Temazepam 15 MG Cap PO PRN (20:30)
[2023-12-19 06:24] LABS: BASOPHILS PERCENT AUTO 0.2 % (0.0-1.0); EOSINOPHILS PERCENT AUTO 0.2 % (1.0-3.0); HEMATOCRIT 37.1 % (37.0-47.0); MEAN CORPUSCULAR HEMOGLOBIN 25.8 pg (27.0-34.0); MEAN CORPUSCULAR HGB CONC 32.3 g/dL (33.0-35.0); MEAN CORPUSCULAR VOLUME 79.6 fL (80-100); MONOCYTES PERCENT AUTO 9.2 % (2-8); NEUTROPHILS PERCENT AUTO 48.4 % (42.2-75.2); PLATELET COUNT,PLT 272 10^3/uL (150-450); RED BLOOD CELL COUNT 4.66 10^6/uL (4.2-5.4); WHITE BLOOD CELL COUNT,WBC 4.9 10^3/uL (5.0-10.0)
[2023-12-19 07:08] LABS: ANION GAP 13.2 mEq/L (7-13); CALCIUM 7.8 mg/dL (8.5-10.1); CREATININE 0.59 mg/dL (0.55-1.02); EST CRCL DRUG DOSING (CG) 69.19 mL/min; MAGNESIUM 1.5 mg/dL (1.8-2.4); POTASSIUM,K 3.2 mmol/L (3.5-5.1)
[2023-12-19] MEDS: Ondansetron 4 MG/2 ML SDV IVPUSH PRN (07:37)
[2023-12-19] MEDS: Gabapentin 300 MG Cap PO SCH (09:28)
[2023-12-19] MEDS: Enoxaparin 40 MG/0.4 ML Syringe SUBCUT SCH (09:28)
[2023-12-19] MEDS: Pantoprazole 40 MG Vial IVPUSH SCH (09:28)
[2023-12-19] MEDS: Patient's Own Medication 1 Each PO SCH ×4 (09:31→09:35)
[2023-12-19] MEDS: Gadobenate Dimeglumine 529 MG/ML 15 ML SDV IVPUSH ONE (09:46)
[2023-12-19] MEDS: Buprenorphine/Naloxone 8-2 MG Tab.SL SL SCH (12:03)
[2023-12-20 07:43] VITALS: BP 154/65; PULSE 53
[2023-12-20] MEDS: Pneumococcal 20-Valent Conjug 0.5 ML Syringe IM ONE (13:48)
== END 2023-12-20 11:40 | disposition home or self-care (01) | DRG 641 ==
LOC: DL.ED 08:35 → DL.MS 11:29 → UNDOADMOB 11:29 → DL.MS 12-19 16:04 → OBSVTOIN 12-19 16:04 → INTOOBSV 12-19 16:04
PROVIDERS: ADMIT Family Medicine Adult Medicine; ATTEND Family Medicine Adult Medicine
DX: E86.0 Dehydration (principal); R10.84 Generalized abdominal pain; E27.8 Other specified disorders of adrenal gland; E27.9 Disorder of adrenal gland, unspecified; E11.42 Type 2 diabetes mellitus with diabetic polyneuropathy; H54.7 Unspecified visual loss; I10 Essential (primary) hypertension; E11.40 Type 2 diabetes mellitus with diabetic neuropathy, unspecified; K21.9 Gastro-esophageal reflux disease without esophagitis; F32.A Depression, unspecified; F17.210 Nicotine dependence, cigarettes, uncomplicated; I11.0 Hypertensive heart disease with heart failure; I50.9 Heart failure, unspecified; K44.9 Diaphragmatic hernia without obstruction or gangrene; Z88.8 Allergy status to other drugs, medicaments and biological substances; Z79.82 Long term (current) use of aspirin; Z79.899 Other long term (current) drug therapy; Z79.84 Long term (current) use of oral hypoglycemic drugs; Z90.49 Acquired absence of other specified parts of digestive tract; Z79.891 Long term (current) use of opiate analgesic
CPT/HCPCS: 0241U; 36415; 74176; 74183; 80048; 80053; 80305; 81001; 82150; 82947; 83036; 83605; 83690; 83735; 84100; 84145; 84484; 85025; 90677; 96361; 96374; 96375; 96376; 99284; 99285; 96372; 99222; 99232; 99238; A9270; A9270-GY; A9577; C9113; G0378; J1170; J1650; J2060; J2405; J3490; J7030